=== PATIENT | female | born 1935 | race Caucasian/White ===

== ENCOUNTER 2019-10-02 00:15 | Observation (INO) ==
[2019-10-02] MEDS ORDERED: Naloxone 0.4 MG/ML INJ IVP PRN (02:36)
[2019-10-02] MEDS ORDERED: Perflutren Lipid Microsphere 1.3 ML in 0.9 % Sodium Chloride 8.7 ML IVP PRN (03:07)
[2019-10-02 03:40] LABS: Basophils % 0.4 %; Eosinophils % 0.3 %; Hematocrit 44.7 % (35.3-44.9); Hemoglobin 14.6 g/dL (11.5-15.4); Immature Granulocytes % 0.3 % (0-4); Mean Corpuscular HGB Conc 32.7 g/dL (31.6-35.5); Mean Corpuscular Hemoglobin 31.3 pg (28.0-33.3); Mean Corpuscular Volume 95.7 fL (83.0-100.0); Mean Platelet Volume 9.4 fL (9.4-12.4); Monocytes # 1.3 K/mcL (0.0-1.3); Monocytes % 12.1 %; Neutrophils # 6.1 K/mcL (1.6-8.9); Platelet Count 215 K/mcL (140-400); Red Blood Count 4.67 M/mcL (3.82-4.97); Red Cell Distribution Width 14.1 % (11.5-14.5); Segmented Neutrophils % 57.9 %; White Blood Count 10.5 K/mcL (4.3-11.1)
[2019-10-02 04:00] LABS: Alanine Aminotransferase 8 Units/L (7-52); Albumin 3.5 g/dL (3.5-5.7); Albumin/Globulin Ratio 1.3 (1.1-2.2); Alkaline Phosphatase 60 Units/L (34-104); Aspartate Amino Transferase 15 Units/L (13-39); BUN/Creatinine Ratio 49 (6-26); Bilirubin,Total 0.4 mg/dL (0.3-1.0); Blood Urea Nitrogen 35 mg/dL (8-23); Calcium 8.4 mg/dL (8.6-10.3); Carbon Dioxide 28 mEq/L (23-29); Chloride 98 mEq/L (98-107); Chol/HDL Ratio 5.3 (0-4.9); Cholesterol 155 mg/dL (< 200); Globulin 2.8 g/dL (2.4-3.5); Glucose 78 mg/dL (70-105); HDL Cholesterol 29 mg/dL (40-59); LDL Cholesterol,Calculated 98 mg/dL (< 100); Magnesium 2.1 mg/dL (1.6-2.6); Osmolality,Calculated 291 (280-300); Phosphorous 4.2 mg/dL (2.7-4.5); Potassium 3.3 mEq/L (3.5-5.1); Sodium 137 mEq/L (136-145); Total Protein 6.3 g/dL (6.4-8.9); Triglycerides 140 mg/dL (< 150); eGFR For African Americans > 60 (> 60); eGFR For Non-African Americans > 60 (> 60)
[2019-10-02] MEDS ORDERED: Potassium Chloride 40 MEQ, Lidocaine 1% 2 ML in 0.9 % Sodium Chloride 500 ML IVPB ONE (04:16)
[2019-10-02] MEDS ORDERED: 0.9 % Sodium Chloride 1,000 ML IVC ONE (04:21)
[2019-10-02] MEDS ORDERED: Ondansetron 4 MG/2 ML VIAL IVP PRN (04:21)
[2019-10-02] MEDS: Doxycycline 100 MG in 0.9 % Sodium Chloride Mini Bag 100 ML IVPB SCH ×2 (05:21→17:11)
[2019-10-02] MEDS ORDERED: WATER IVPB SCH (08:00)
[2019-10-02] MEDS ORDERED: ACYCLOVIR IVPB SCH (08:00)
[2019-10-02] MEDS ORDERED: D5 IVPB SCH (08:00)
[2019-10-02 10:16] LABS: Estimated Average Glucose 123 mg/dl
[2019-10-02] MEDS: WATER IVPB SCH ×2 (10:30→11:37)
[2019-10-02] MEDS: Sennosides 8.6 MG TABLET PO SCH (10:30)
[2019-10-02] MEDS: ACYCLOVIR IVPB SCH ×2 (10:30→11:37)
[2019-10-02] MEDS: Aspirin 81 MG TAB.CHEW PO SCH (10:30)
[2019-10-02] MEDS: D5 IVPB SCH ×2 (10:30→11:37)
[2019-10-02] MEDS: predniSONE 20 MG TABLET PO SCH (11:37)
[2019-10-03 05:37] LABS: BUN/Creatinine Ratio 50 (6-26); Blood Urea Nitrogen 22 mg/dL (8-23); Calcium 8.2 mg/dL (8.6-10.3); Carbon Dioxide 26 mEq/L (23-29); Chloride 102 mEq/L (98-107); Glucose 115 mg/dL (70-105); Osmolality,Calculated 282 (280-300); Potassium 4.1 mEq/L (3.5-5.1); Sodium 134 mEq/L (136-145); eGFR For African Americans > 60 (> 60); eGFR For Non-African Americans > 60 (> 60)
[2019-10-03] MEDS: Doxycycline 100 MG in 0.9 % Sodium Chloride Mini Bag 100 ML IVPB SCH ×2 (06:26→16:51)
[2019-10-03] MEDS ORDERED: *HR* LORazepam 0.5 MG TABLET PO ONE (08:12)
[2019-10-03] MEDS: Sennosides 8.6 MG TABLET PO SCH (08:48)
[2019-10-03] MEDS: amLODIPine 5 MG TABLET PO SCH (08:48)
[2019-10-03] MEDS: predniSONE 20 MG TABLET PO SCH (08:48)
[2019-10-03] MEDS: Aspirin 81 MG TAB.CHEW PO SCH (08:49)
[2019-10-03] MEDS: lisinopriL 10 MG TABLET PO SCH (08:49)
[2019-10-03] MEDS: Artificial Tears SOLN 15 ML BOTTLE LEFT EYE SCH ×3 (14:39→21:09)
[2019-10-04 03:58] LABS: BUN/Creatinine Ratio 34 (6-26); Blood Urea Nitrogen 14 mg/dL (8-23); Carbon Dioxide 27 mEq/L (23-29); Chloride 99 mEq/L (98-107); Glucose 112 mg/dL (70-105); Osmolality,Calculated 281 (280-300); Sodium 135 mEq/L (136-145); eGFR For African Americans > 60 (> 60); eGFR For Non-African Americans > 60 (> 60)
[2019-10-04] MEDS: Doxycycline 100 MG in 0.9 % Sodium Chloride Mini Bag 100 ML IVPB SCH (05:16)
[2019-10-04] MEDS: Aspirin 81 MG TAB.CHEW PO SCH (08:24)
[2019-10-04] MEDS: Sennosides/Docusate Sodium TABLET PO SCH (08:24)
[2019-10-04] MEDS: predniSONE 20 MG TABLET PO SCH (08:24)
[2019-10-04] MEDS: Sennosides 8.6 MG TABLET PO SCH (08:24)
[2019-10-04] MEDS: amLODIPine 5 MG TABLET PO SCH (08:25)
[2019-10-04] MEDS: Artificial Tears SOLN 15 ML BOTTLE LEFT EYE SCH ×8 (08:25→23:05)
[2019-10-04] MEDS: lisinopriL 10 MG TABLET PO SCH (08:26)
[2019-10-04] MEDS: Lacri-Lube 3.5 GM TUBE LEFT EYE SCH (17:23)
[2019-10-05] MEDS: Artificial Tears SOLN 15 ML BOTTLE LEFT EYE SCH ×9 (03:45→21:33)
[2019-10-05] MEDS: Aspirin 81 MG TAB.CHEW PO SCH (10:16)
[2019-10-05] MEDS: Sennosides 8.6 MG TABLET PO SCH (10:16)
[2019-10-05] MEDS: amLODIPine 5 MG TABLET PO SCH (10:16)
[2019-10-05] MEDS: Sennosides/Docusate Sodium TABLET PO SCH (10:16)
[2019-10-05] MEDS: lisinopriL 10 MG TABLET PO SCH (10:16)
[2019-10-05] MEDS: predniSONE 20 MG TABLET PO SCH (10:17)
[2019-10-05] MEDS ORDERED: Nitroglycerin 0.4 MG TAB.SUBL SL PRN (11:42)
[2019-10-05] MEDS: Acetaminophen 325 MG TABLET PO PRN (15:52)
[2019-10-05] MEDS: Lacri-Lube 3.5 GM TUBE LEFT EYE SCH (17:21)
[2019-10-06] MEDS: Artificial Tears SOLN 15 ML BOTTLE LEFT EYE SCH ×13 (01:38→22:09)
[2019-10-06] MEDS: Aspirin 81 MG TAB.CHEW PO SCH (08:56)
[2019-10-06] MEDS: Acetaminophen 325 MG TABLET PO PRN (08:56)
[2019-10-06] MEDS: amLODIPine 5 MG TABLET PO SCH (08:57)
[2019-10-06] MEDS: Sennosides 8.6 MG TABLET PO SCH (08:57)
[2019-10-06] MEDS: predniSONE 20 MG TABLET PO SCH (08:57)
[2019-10-06] MEDS: Sennosides/Docusate Sodium TABLET PO SCH (08:57)
[2019-10-06] MEDS: lisinopriL 10 MG TABLET PO SCH (08:57)
[2019-10-06] MEDS: Lacri-Lube 3.5 GM TUBE LEFT EYE SCH (18:20)
[2019-10-07] MEDS: Artificial Tears SOLN 15 ML BOTTLE LEFT EYE SCH ×10 (00:12→17:36)
[2019-10-07] MEDS: Aspirin 81 MG TAB.CHEW PO SCH (11:31)
[2019-10-07] MEDS: predniSONE 20 MG TABLET PO SCH (11:31)
[2019-10-07] MEDS: Sennosides/Docusate Sodium TABLET PO SCH (11:31)
[2019-10-07] MEDS: amLODIPine 5 MG TABLET PO SCH (11:31)
[2019-10-07] MEDS: Sennosides 8.6 MG TABLET PO SCH (11:32)
[2019-10-07] MEDS: lisinopriL 10 MG TABLET PO SCH (11:35)
[2019-10-07 15:20] VITALS: BP 107/63
[2019-10-07] MEDS: Lacri-Lube 3.5 GM TUBE LEFT EYE SCH (17:35)
== END 2019-10-07 18:10 ==
LOC: 3BNU
PROVIDERS: ADMIT Family Medicine; ATTEND Family Medicine

== ENCOUNTER 2019-10-30 16:54 | Observation (INO) ==
[2019-10-30] MEDS ORDERED: Naloxone 0.4 MG/ML INJ IVP PRN (19:13)
[2019-10-30] MEDS ORDERED: Ondansetron 4 MG/2 ML VIAL IVP PRN (19:13)
[2019-10-30] MEDS ORDERED: *HR* LORazepam 2 MG/ML VIAL IVP PRN (19:17)
[2019-10-30] MEDS: 0.9 % Sodium Chloride 1,000 ML IVC SCH (21:29)
[2019-10-30] MEDS: Gabapentin 100 MG CAPSULE PO SCH (21:29)
[2019-10-30 23:18] LABS: Adenovirus Not Detected (Not Detect); Bordetella Pertussis Not Detected (Not Detect); Chlamydophila pneumoniae Not Detected (Not Detect); Coronavirus 229E Not Detected (Not Detect); Coronavirus HKU1 Not Detected (Not Detect); Coronavirus NL63 Not Detected (Not Detect); Coronavirus OC43 Not Detected (Not Detect); Human Metapneumovirus Not Detected (Not Detect); Human Rhinovirus/Enterovirus Not Detected (Not Detect); Influenza A Subtype 2009 H1 Not Detected (Not Detect); Influenza B Not Detected (Not Detect); Mycoplasma pneumoniae Not Detected (Not Detect); Parainfluenza Virus 1 Not Detected (Not Detect); Parainfluenza Virus 2 Not Detected (Not Detect); Parainfluenza Virus 3 Not Detected (Not Detect); Parainfluenza Virus 4 Not Detected (Not Detect); Respiratory Syncytial Virus Not Detected (Not Detect)
[2019-10-31] MEDS: *HR* Heparin 5,000 UNIT/ML VIAL SQ SCH ×2 (05:31→17:07)
[2019-10-31 07:11] LABS: Basophils % 0.4 %; Eosinophils # 0.4 K/mcL (0.0-0.6); Eosinophils % 4.6 %; Hematocrit 35.4 % (35.3-44.9); Hemoglobin 11.3 g/dL (11.5-15.4); Immature Granulocytes % 0.6 % (0-4); Lymphocytes # 2.1 K/mcL (0.6-4.6); Lymphocytes % 26.2 %; Mean Corpuscular HGB Conc 31.9 g/dL (31.6-35.5); Mean Corpuscular Hemoglobin 30.4 pg (28.0-33.3); Mean Corpuscular Volume 95.2 fL (83.0-100.0); Mean Platelet Volume 8.9 fL (9.4-12.4); Monocytes # 0.8 K/mcL (0.0-1.3); Monocytes % 10.4 %; Neutrophils # 4.6 K/mcL (1.6-8.9); Platelet Count 216 K/mcL (140-400); Red Blood Count 3.72 M/mcL (3.82-4.97); Red Cell Distribution Width 14.3 % (11.5-14.5); Segmented Neutrophils % 57.8 %
[2019-10-31 07:34] LABS: BUN/Creatinine Ratio 18 (6-26); Blood Urea Nitrogen 9 mg/dL (8-23); Calcium 8.6 mg/dL (8.6-10.3); Carbon Dioxide 29 mEq/L (23-29); Chloride 104 mEq/L (98-107); Glucose 90 mg/dL (70-105); Osmolality,Calculated 286 (280-300); Potassium 3.6 mEq/L (3.5-5.1); Sodium 139 mEq/L (136-145); eGFR For African Americans > 60 (> 60); eGFR For Non-African Americans > 60 (> 60)
[2019-10-31] MEDS: cefTRIAXone 1,000 MG in 0.9 % Sodium Chloride Mini Bag 100 ML IVPB SCH (10:11)
[2019-10-31] MEDS: 0.9 % Sodium Chloride 1,000 ML IVC SCH (11:14)
[2019-10-31] MEDS ORDERED: LOK IVPB ONE (14:07)
[2019-10-31] MEDS ORDERED: PHENYTOIN IVPB ONE (14:07)
[2019-10-31] MEDS: Gabapentin 100 MG CAPSULE PO SCH (21:19)
[2019-11-01] MEDS: *HR* Heparin 5,000 UNIT/ML VIAL SQ SCH ×2 (06:55→17:15)
[2019-11-01] MEDS: cefTRIAXone 1,000 MG in 0.9 % Sodium Chloride Mini Bag 100 ML IVPB SCH (09:07)
[2019-11-01] MEDS ORDERED: amLODIPine 5 MG TABLET PO SCH (09:45)
[2019-11-01] MEDS ORDERED: Ertapenem 1,000 MG in 0.9 % Sodium Chloride Mini Bag 100 ML IVPB SCH (10:00)
[2019-11-01 19:39] VITALS: BP 129/79
[2019-11-01] MEDS: Gabapentin 100 MG CAPSULE PO SCH (21:36)
[2019-11-02] MEDS ORDERED: Sennosides/Docusate Sodium TABLET PO SCH (09:00)
[2019-11-02] MEDS ORDERED: lisinopriL 10 MG TABLET PO SCH (09:00)
== END 2019-11-02 00:33 ==
LOC: 3ANU → SUATTDRO 18:50
PROVIDERS: ADMIT Internal Medicine; ATTEND Internal Medicine